=== PATIENT | female | born 1965 | race Caucasian/White ===

== ENCOUNTER 2022-02-12 17:27 | Emergency (ER) | payer SELFPAY ==
[~2022-02-12] VITALS: Ht 149.9 cm; Wt 67.1 kg
[2022-02-12 18:01] VITALS: BP_SYST 126
[2022-02-12] MEDS ORDERED: PSEU120T57 PO (21:10)
[2022-02-12] MEDS ORDERED: IBUP-1969 PO (21:10)
--- NOTE | 2022-02-12 21:30 | NUR ---
Called patient, no answer
== END 2022-02-12 21:30 | disposition left against medical advice (07) ==
LOC: SED 17:27
DX: J40 Bronchitis, not specified as acute or chronic (principal); R05.9 Cough, unspecified; R09.81 Nasal congestion; Z88.8 Allergy status to other drugs, medicaments and biological substances; Z79.899 Other long term (current) drug therapy; Z20.822 Contact with and (suspected) exposure to COVID-19
CPT/HCPCS: 36415; 71045; 99284